=== PATIENT | female | born 1960 | race Caucasian/White ===

== ENCOUNTER 2020-05-16 03:29 | Emergency (ER) | payer SELFPAY ==
[~2020-05-16] VITALS: Ht 175.3 cm; Wt 66.0 kg
[2020-05-16 03:30] VITALS: BP 157/86
== END 2020-05-16 06:04 | disposition home or self-care (01) ==
LOC: ER 03:29
DX: N39.0 Urinary tract infection, site not specified (principal)
CPT/HCPCS: 99283